=== PATIENT | male | born 1935 | race Caucasian/White ===

== ENCOUNTER 2017-03-06 09:32 | Day surgery (SDC) | payer MEDICARE, OTHER ==
[~2017-03-06 09:32] MED LIST: ACETAMINOPHEN 325 MG TABLET PO PRN; ACETYLCHOLINE CHLORIDE 20 DROP KIT IO PRN; BUPIVACAINE HCL/PF 30 ML VIAL IJ PRN; CYCLOPENTOLATE HCL 20 DROP BTL RIGHTEYE PRN; DEXTROSE 5%-0.5 NORMAL SALINE 1,000 ML IV PRN; EPINEPHrine 1 MG/ML AMPUL IO PRN; HYALURONATE SODIUM 0.4 ML DISP.SYRIN IO PRN; HYALURONATE SODIUM 0.85 ML DISP.SYRIN IO PRN; LIDOCAINE HCL/PF 200 MG/5 ML AMPUL TP PRN; LIDOCAINE HCL/PF 5 ML VIAL IO PRN; NORMAL SALINE 3 ML BOX IV PRN; TETRACAINE HCL 150 DROP BTL OP PRN
[2017-03-06] MEDS: PHENYLEPHRINE HCL 50 DROP BTL RIGHTEYE PRN ×3 (10:03→10:38)
[2017-03-06] MEDS: TROPICAMIDE 150 DROP BTL RIGHTEYE PRN ×3 (10:03→10:38)
[2017-03-06] MEDS ORDERED: DEXTROSE 5%-0.5 NORMAL SALINE 1,000 ML IV ONE (11:10)
[2017-03-06 13:52] VITALS: BP 141/93
== END 2017-03-06 09:33 | disposition home or self-care (01) ==
LOC: AMB 09:32
PROVIDERS: ATTEND Ophthalmology
PROC: 08RJ3JZ Replacement of Right Lens with Synthetic Substitute, Percutaneous Approach (ICD-10-PCS; principal; 2017-03-06 11:00)
DX: H26.8 Other specified cataract (principal); G30.9 Alzheimer's disease, unspecified; F02.80 Dementia in other diseases classified elsewhere, unspecified severity, without behavioral disturbance, psychotic disturbance, mood disturbance, and anxiety; Z87.891 Personal history of nicotine dependence; Z68.30 Body mass index [BMI] 30.0-30.9, adult

== ENCOUNTER 2019-05-02 11:24 | Observation (INO) ==
[2019-05-02] MEDS ORDERED: DILTIAZEM HCL 5 MG/ML VIAL IV ONE ×2 (11:38→22:35)
[2019-05-02 11:54] LABS: Hematocrit 47.6 % (42.0-52.0); Hemoglobin 15.8 gm/dL (13.5-18.0); Mean Cell Volume 93.7 fl (78-100); Mean Corpuscular Hemoglobin 31.1 pg (27-31); Mean Corpuscular Hgb Conc 33.2 g/dl (32-36); Mean Platelet Volume 9.5 fl (8-11.3); Neutrophil # 5.9 K/mm3 (1.3-6.0); Neutrophil % 68.3 % (42-75.0); Platelet Count 282 K/mm3 (150-450); Red Blood Count 5.08 M/mm3 (4.7-6.0); Red Cell Distribution Width 14.3 % (11.5-14.0); White Blood Count 8.6 K/mm3 (4.0-10.5)
[2019-05-02 12:05] LABS: Prothrombin Time (Patient) 9.6 Seconds (9.1-10.7)
[2019-05-02 12:07] LABS: INR 0.97 INR (0.92-1.08)
[2019-05-02 12:11] LABS: ALT 29 U/L (19-67); AST 18 U/L (0-48); Albumin * 3.5 gm/dl (3.4-5.0); Alkaline Phosphatase * 94 U/L (50-170); Anion Gap 14.5 mmol/L (6.8-13.8); Bilirubin, Total 0.6 mg/dL (0.0-1.1); Blood Urea Nitrogen 19 mg/dL (6-23); Calcium * 8.9 mg/dL (7.9-10.9); Chloride 101 mmol/L (97-106); Glucose * 131 mg/dL (70-110); Potassium 4.5 mmol/L (3.4-4.6); Sodium 138 mmol/L (132-142); Total Protein 7.2 gm/dL (6.2-8.2)
[2019-05-02 12:12] LABS: Troponin I Less than 0.017 ng/mL (0.00-0.10)
[2019-05-02] MEDS ORDERED: FUROSEMIDE 10 MG/ML VIAL IV ONE (14:17)
--- NOTE | 2019-05-02 14:42 | ERNOTE ---
Chest Pain/Cardiac HPI Date of Service: 05/02/19 Chief Complaint: Palpitations Time Seen by Provider: 05/02/19 11:30 Source: patient, EMS, [facility] [place] Exam Limitations: hard of hearing, dementia Immunizations: IMMUNIZATION HX Immunizations Up to Date Yes History of Influenza Vaccine Yes Hx Pneumococcal Vaccination Yes Allergies/Adverse Reactions: Allergies No Known Allergies Allergy (Verified 05/02/19 11:30) Home Medications: HOME MEDICATIONS Acetaminophen [Tylenol] 650 mg PO Q6H PRN 05/05/15 [Last Taken Unknown] loratadine 10 mg tablet 10 mg PO DAILY 02/14/18 [Last Taken Unknown] saliva substitute combo no.9 mouthwash 15 ml MUCOUS MEMBRANE DAILY PRN 03/27/18 [Last Taken Unknown] nystatin 100,000 unit/gram topical cream 1 applic TP DAILY PRN 06/08/18 [Last Taken Unknown] Narrative: patient present to ed per ambulance with acute onset of a-fib Timing: constant Severity/Quality: moderate, dull Location: back Chest Pain Radiation: no radiation Activities at Onset: none Modifying Factors - Improves: Present: nothing Modifying Factors - Worsens: Present: nothing Nitro Today/Relief: no nitro taken today Aspirin Treatment Today: no aspirin today Associated Symptoms: Present: denies symptoms Prior Chest Pain/Cardiac Workup: Reports: prior chest pain Review of Systems - Review of Systems Constitutional: Present: See HPI EYE: Present: no symptoms reported ENT: Present: no symptoms reported Respiratory: Present: See HPI, shortness of breath Cardiology: Present: See HPI, palpitations Gastrointestinal/Abdominal: Present: no symptoms reported Genitourinary: Present: no symptoms reported Musculoskeletal: Present: no symptoms reported Skin: Present: no symptoms reported Neurological: Present: no symptoms reported Endocrine: Present: no symptoms reported Hematologic/Lymphatic: Present: no symptoms reported Psych: Present: no symptoms reported All Other Systems: All systems neg except as marked Medical History (Updated 10/12/18 @ 16:39 by Kacey Reid DPM) Allergic rhinitis (Chronic) TIA (transient ischemic attack) (Chronic) Onset Date: Unknown left cerebral Pseudobulbar affect (Chronic) Onset Date: ~2016 Polyosteoarthritis, unspecified (Chronic) Onset Date: Unknown Osteoarthritis (Chronic) Onset Date: Unknown Macular degeneration (Chronic) Onset Date: Unknown Dementia (Chronic) Onset Date: Unknown Bipolar affective disorder (Chronic) Onset Date: ~2017 Alzheimer disease Onset Date: Unknown Atrioventricular block Onset Date: Unknown Bereavement reaction Onset Date: Unknown Difficulty walking Foot pain, bilateral Hearing loss Onset Date: Unknown 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 Onychomycosis Rage Onset Date: Unknown Toe pain, bilateral UTI (urinary tract infection) Surgical History: Surgical History (Updated 05/02/19 @ 12:38 by Anahy Rebollar, RN) Surgical history unknown Family History: Family History (Updated 02/14/18 @ 11:13 by Shanel Damian RN) Father Emphysema of lung Social History: (Last Reviewed 05/02/19 @ 11:30 by Anahy Rebollar, RN) Social History[place] [facility] [facility] Tobacco: Smoking Status: Former smoker Alcohol: alcohol intake: current Substance Use: substance use type: unknown Dietary Habits: caffeine: Yes Physical Exam - Physical Exam General Appearance: Present: mild distress, anxious Head Exam: Present: normal inspection, no evidence of injury Eye Exam: Normal inspection: bilateral, PERRL: bilateral, EOMI: bilateral Ears, Nose, Throat: Present: normal ENT inspection, normal pharynx Neck: Present: normal inspection, nontender Respiratory: Present: no respiratory distress, normal breath sounds, no accessory muscle use, chest nontender, lungs clear Cardiovascular/Chest: Present: irregularly irregular Gastrointestinal/Abdominal: Present: normal bowel sounds, nontender, nondistended, soft Back Exam: Present: normal inspection, normal range of motion, no CVA tenderness, no vertebral tenderness Extremity Exam: Present: normal inspection, non-tender, normal range of motion, no edema Neurological Exam: Present: disoriented to person, disoriented to time Skin Exam: Present: normal color, warm/dry Lymphatic Exam: Present: no adenopathy Progress - Date and Time Seen: Date and Time: 05/02/19 14:40 cardizem given iv, rate controlled at present - Results and Orders Patient's Lab Results:: I have reviewed the patient's lab results. - Vital Signs Patient's Vital Signs:: I have reviewed the patient's vital signs. Vital Signs: Vital Signs 05/02/19 11:27 05/02/19 11:30 05/02/19 11:41 Temperature 36.2 C Pulse Rate 152 H 149 H 153 H Respiratory Rate 33 H 21 H Blood Pressure 125/76 125/75 O2 Sat by Pulse Oximetry 05/02/19 11:44 05/02/19 11:51 05/02/19 12:01 Temperature Pulse Rate 100 110 H 71 Respiratory Rate 24 H 22 H 19 Blood Pressure 97/54 110/62 110/63 O2 Sat by Pulse Oximetry 99 99 99 05/02/19 12:06 05/02/19 12:11 05/02/19 12:32 Temperature Pulse Rate 69 88 81 Respiratory Rate 16 19 24 H Blood Pressure 107/60 114/77 107/68 O2 Sat by Pulse Oximetry 100 100 100 05/02/19 12:50 05/02/19 13:36 05/02/19 14:02 Temperature Pulse Rate 67 70 62 Respiratory Rate 21 H 20 21 H Blood Pressure 113/57 101/64 113/56 O2 Sat by Pulse Oximetry 99 100 100 - EKG EKG #1 EKG: atrial fibrillation - X-Ray X-Ray #1 X-Ray: chest Interpretation: Discd w/ radiologist - pulmonary vascular congestion - Progress/Reassessment Chief Complaint: Palpitations Progress:: Improved - Transfer of Care Expected Disposition: Admit Plan - Plan Plan: to admit to observation Departure Clinical Impression: Atrial fibrillation with rapid ventricular response - Departure Disposition: Short Term Hospital Inpatient Condition: Fair
--- NOTE | 2019-05-02 16:03 | HP ---
Chief Complaint - Chief Complaint Date of Service: 05/02/19 Time of Service: 16:03 Chief Complaint: Chest Pain History of Present Illness: 84-year-old male a resident of [facility] presents to the ER with complaints of chest pain. Past medical history transient ischemic attack, dementia, bipolar affective disorder, Alzheimer's disease. Patient is a resident of [facility]. Family care provider is Divya Streeter. Patient was complaining of chest pain. Pain was rated 2-3 out of 10. Chest pain resolved upon arrival to the ER. On arrival vital signs were stable with exception of tachycardia. Patient placed on continuous telemetry and cardiac work-up completed. EKG was significant for A. fib RVR and BNP was elevated to 1618. Patient initially cardioverted without any medical intervention. However shortly went back into A. fib RVR. This resolved with 25 mg Cardizem IV push. No past medical history of congestive heart failure, hypertension or atrial fib. Patient admitted in observations for further management. On arrival to the floor patient was evaluated. Vital signs stable. Patient is seated in chair at bedside. Physical examination is only significant for minimal pitting edema of the lower extremity, firm abdomen most likely secondary to ascites and bilateral lower lobe crackles. Otherwise patient has no complaints at the moment. Medical History (Updated 05/02/19 @ 16:23 by Quintin Horton MD) Allergic rhinitis (Chronic) TIA (transient ischemic attack) (Chronic) Onset Date: Unknown left cerebral Pseudobulbar affect (Chronic) Onset Date: ~2016 Polyosteoarthritis, unspecified (Chronic) Onset Date: Unknown Osteoarthritis (Chronic) Onset Date: Unknown Macular degeneration (Chronic) Onset Date: Unknown Dementia (Chronic) Onset Date: Unknown Bipolar affective disorder (Chronic) Onset Date: ~2017 Alzheimer disease Onset Date: Unknown Atrioventricular block Onset Date: Unknown Bereavement reaction Onset Date: Unknown Difficulty walking Foot pain, bilateral Hearing loss Onset Date: Unknown 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 Onychomycosis Rage Onset Date: Unknown Toe pain, bilateral UTI (urinary tract infection) Surgical History: Surgical History (Updated 05/02/19 @ 12:38 by Anahy Rebollar RN) Surgical history unknown Family History: Family History (Updated 02/14/18 @ 11:13 by Shanel Damian RN) Father Emphysema of lung Social History: (Last Reviewed 05/02/19 @ 11:30 by Anahy Rebollar RN) Social History: skilled nursing: Yes skilled nursing comment: [facility] Tobacco: Smoking Status: Former smoker Alcohol: alcohol intake: current Substance Use: substance use type: unknown Dietary Habits: caffeine: Yes Review Of Systems (GEN) - Review of Systems Generalized/Overall Review: Present: Weakness Respiratory: Absent: Shortness of Breath Cardiac: Present: Chest Pain Abdominal: Absent: Nausea, Vomiting, Abdominal Pain, Constipation Musculoskeletal: Present: Joint Swelling. Absent: Joint Pain Neurological: Present: Weakness Skin: Present: Dryness Immunizations: IMMUNIZATION HX Immunizations Up to Date Yes History of Influenza Vaccine Yes Hx Pneumococcal Vaccination Yes Allergies/Adverse Reactions: Allergies Allergy/AdvReac Type Severity Reaction Status Date / Time No Known Allergies Allergy Verified 05/02/19 11:30 Home Medications: HOME MEDICATIONS Acetaminophen [Tylenol] 650 mg PO Q6H PRN 05/05/15 [Last Taken Unknown] loratadine 10 mg tablet 10 mg PO DAILY 02/14/18 [Last Taken Unknown] saliva substitute combo no.9 mouthwash 15 ml MUCOUS MEMBRANE DAILY PRN 03/27/18 [Last Taken Unknown] nystatin 100,000 unit/gram topical cream 1 applic TP DAILY PRN 06/08/18 [Last Taken Unknown] Exam - Exam Vital Signs: Vital Signs - Last Taken Temp 35.8 C L 05/02/19 15:45 Pulse 67 05/02/19 15:45 Resp 18 05/02/19 15:45 BP 143/69 05/02/19 15:45 Pulse Ox 95 05/02/19 15:45 Constitutional: Present: Alert, Oriented x3, Cooperative, Well developed, Well nourished, No distress ENT Exam: Absent: hearing grossly normal - Patient is hard of hearing Neck: Present: non-tender, full range of motion, supple, normal inspection Respiratory: Present: no respiratory distress, crackles - Bilateral lower lobe Cardiovascular/Chest: Present: normal peripheral pulses, regular rate, rhythm Abdomen: Present: Normal bowel sounds, firm - Most likely secondary to ascites secondary from congestive heart failure Extremity: Present: normal range of motion, non-tender, pedal edema - 1+ pitting edema Skin Exam: Present: normal color, warm/dry Neurologic: Present: oriented x 3 Appearance: Present: appropriate appearance Eye contact: Present: cooperative Diagnostic Studies: Abnormal Lab Results 05/02/19 05/02/1905/02/19 Range/Units 11:50 11:50 11:50 MCH 31.1 H (27-31) pg RDW 14.3 H (11.5-14.0) % Lymphocytes % 19.5 L (20-51) % Monocytes % 9.3 H (0.0-9) % Anion Gap 14.5 H (6.8-13.8) mmol/L Est GFR (Non-Af Amer) 58 L (60-130) mL/min Random Glucose 131 H (70-110) mg/dL B-Natriuretic Peptide 1618 H (5-650) pg/mL Laboratory Results WBC 8.6 K/mm3 (4.0-10.5) 05/02/19 11:50 RBC 5.08 M/mm3 (4.7-6.0) 05/02/19 11:50 Hgb 15.8 gm/dL (13.5-18.0) 05/02/19 11:50 Hct 47.6 % (42.0-52.0) 05/02/19 11:50 MCV 93.7 fl (78-100) 05/02/19 11:50 MCH 31.1 pg (27-31) H 05/02/19 11:50 MCHC 33.2 g/dl (32-36) 05/02/19 11:50 RDW 14.3 % (11.5-14.0) H 05/02/19 11:50 Plt Count 282 K/mm3 (150-450) 05/02/19 11:50 MPV 9.5 fl (8-11.3) 05/02/19 11:50 Immature Gran % (Auto) 0.40 % (0.001-0.429) 05/02/19 11:50 Immature Gran # (Auto) 0.03 K/mm3 (0.000-0.0310) 05/02/19 11:50 68.3 % (42-75.0) 05/02/19 11:50 19.5 % (20-51) L 05/02/19 11:50 9.3 % (0.0-9) H 05/02/19 11:50 1.9 % (0.0-3.0) 05/02/19 11:50 0.6 % (0.0-1.0) 05/02/19 11:50 Nucleated RBC % 0.0 k/mm3 (0-1) 05/02/19 11:50 5.9 K/mm3 (1.3-6.0) 05/02/19 11:50 1.67 k/mm3 (1.5-3.5) 05/02/19 11:50 0.8 k/mm3 (0.0-1.0) 05/02/19 11:50 0.2 k/mm3 (0.0-0.7) 05/02/19 11:50 Absolute Basophils 0.1 k/mm3 (0.0-0.1) 05/02/19 11:50 PT 9.6 Seconds (9.1-10.7) 05/02/19 11:50 INR (Anticoag Therapy) 0.97 INR (0.92-1.08) 05/02/19 11:50 PTT (Eric) 30.0 Seconds (24-32) 05/02/19 11:50 Sodium 138 mmol/L (132-142) 05/02/19 11:50 138 mmol/L (130-142) 05/02/19 11:50 Potassium 4.5 mmol/L (3.4-4.6) 05/02/19 11:50 Chloride 101 mmol/L (97-106) 05/02/19 11:50 Carbon Dioxide 27.0 mmol/L (24-32.6) 05/02/19 11:50 14.5 mmol/L (6.8-13.8) H 05/02/19 11:50 BUN 19 mg/dL (6-23) 05/02/19 11:50 1.27 mg/dL (0.4-1.4) 05/02/19 11:50 Est GFR (Non-Af Amer) 58 mL/min (60-130) L 05/02/19 11:50 15.0 (9.0-21.6) 05/02/19 11:50 131 mg/dL (70-110) H 05/02/19 11:50 Calcium 8.9 mg/dL (7.9-10.9) 05/02/19 11:50 Calcium Adj for Albumin 9.0 mg/dL (8.4-10.2) 05/02/19 11:50 0.6 mg/dL (0.0-1.1) 05/02/19 11:50 AST 18 U/L (0-48) 05/02/19 11:50 ALT 29 U/L (19-67) 05/02/19 11:50 94 U/L (50-170) 05/02/19 11:50 Less than 0.017 ng/mL (0.00-0.10) 05/02/19 11:50 B-Natriuretic Peptide 1618 pg/mL (5-650) H 05/02/19 11:50 7.2 gm/dL (6.2-8.2) 05/02/19 11:50 3.5 gm/dl (3.4-5.0) 05/02/19 11:50 Assessment/Plan - Narrative Narrative: 1. New onset A. fib with RVR -Cardioverted with Cardizem 25 mg IV -Continues to -We will order Cardizem 5 mg as needed -Currently in sinus rhythm with patient resumed to be in A. fib RVR will administer Cardizem push of 5 mg if no improvement will start Cardizem drip. -We will consider diagnosis of paroxysmal A. fib and discharge patient on the beta-humberto and to follow-up with primary care provider and steam conditioning operator for further evaluation. 2. New onset congestive heart failure most likely secondary to A. fib. -BNP obtained in ER 1608 -Received Lasix 60 mg IV -We will continue with Lasix 40 mg IV daily -Daily checks x-ray in the morning -Strict intake and output -Fluid restriction of 1500 mL -Daily weight 3. Hyperglycemia with no diagnosis of diabetes mellitus -Hyperglycemia most likely due to labs were obtained and they were nonfasting -We will obtain A1c to rule out diabetes mellitus 4 chronic condition of dementia and seasonal allergies -We will resume home medications Fluids electrolytes and nutrition: Heart healthy diet DVT prophylaxis: NovoLog 40 mg subcutaneous Activity: Ambulate with assistance, fall precautions due to age and weakness CODE STATUS: DNR/DNI Disposition: Anticipate discharge within 24 to 48 hours to [facility]. - Assessment/Plan (1) New onset atrial fibrillation Problem: Acute (2) New onset of congestive heart failure Problem: Acute (3) Hyperglycemia Problem: Acute (4) Alzheimer disease Problem: Chronic Qualifiers: Alzheimer's disease onset: unspecified onset Dementia behavioral disturbance: without behavioral disturbance Qualified Code(s): G30.9 - Alzheimer's disease, unspecified; F02.80 - Dementia in other diseases classified elsewhere without behavioral disturbance (5) Hearing loss Problem: Chronic Qualifiers: Hearing loss type: unspecified Laterality: bilateral Qualified Code(s): H91.93 - Unspecified hearing loss, bilateral (6) Allergic rhinitis Problem: Chronic Qualifiers: Allergic rhinitis trigger: unspecified Allergic rhinitis seasonality: unspecified Qualified Code(s): J30.9 - Allergic rhinitis, unspecified (7) Dementia Problem: Chronic Qualifiers: Dementia type: unspecified type Dementia behavioral disturbance: without behavioral disturbance Qualified Code(s): F03.90 - Unspecified dementia without behavioral disturbance
[2019-05-02] MEDS ORDERED: ACETAMINOPHEN 500 MG TABLET PO PRN (16:26)
[2019-05-02] MEDS ORDERED: ENOXAPARIN SODIUM 40 MG/0.4 ML SYRG SC SCH (16:30)
[2019-05-02] MEDS ORDERED: NYSTATIN 30 APPL TUBE TP PRN (16:38)
[2019-05-02] MEDS ORDERED: Lytes/Yerba Santa 240 APPL BTL MM PRN (16:38)
[2019-05-02] MEDS ORDERED: FLU VACC QS2019-20(6MOS UP)/PF 60 MCG/0.5 ML SYRINGE IM ONE (17:00)
[2019-05-02] MEDS: DILTIAZEM HCL 30 MG TABLET PO SCH (21:08)
[2019-05-03 05:55] LABS: Hemoglobin 14.8 gm/dL (13.5-18.0); Mean Cell Volume 93.2 fl (78-100); Mean Corpuscular Hemoglobin 30.6 pg (27-31); Mean Corpuscular Hgb Conc 32.9 g/dl (32-36); Mean Platelet Volume 9.9 fl (8-11.3); Neutrophil # 5.6 K/mm3 (1.3-6.0); Neutrophil % 68.4 % (42-75.0); Platelet Count 263 K/mm3 (150-450); Red Blood Count 4.83 M/mm3 (4.7-6.0); Red Cell Distribution Width 14.4 % (11.5-14.0); White Blood Count 8.2 K/mm3 (4.0-10.5)
[2019-05-03 06:12] LABS: Albumin * 3.5 gm/dl (3.4-5.0); Anion Gap 12.4 mmol/L (6.8-13.8); BUN/Creatinine Ratio 18.8 (9.0-21.6); Bilirubin, Total 0.8 mg/dL (0.0-1.1); Calcium * 8.9 mg/dL (7.9-10.9); Carbon Dioxide 28.9 mmol/L (24-32.6); Potassium 4.3 mmol/L (3.4-4.6); Total Protein 6.9 gm/dL (6.2-8.2)
--- NOTE | 2019-05-03 08:35 | DS ---
(1) New onset atrial fibrillation Problem: Acute (2) New onset of congestive heart failure Problem: Acute (3) Hyperglycemia Problem: Acute (4) Alzheimer disease Problem: Chronic Qualifiers: Alzheimer's disease onset: unspecified onset Dementia behavioral disturbance: without behavioral disturbance Qualified Code(s): G30.9 - Alzheimer's disease, unspecified; F02.80 - Dementia in other diseases classified elsewhere without behavioral disturbance (5) Hearing loss Problem: Chronic Qualifiers: Hearing loss type: unspecified Laterality: bilateral Qualified Code(s): H91.93 - Unspecified hearing loss, bilateral (6) Allergic rhinitis Problem: Chronic Qualifiers: Allergic rhinitis trigger: unspecified Allergic rhinitis seasonality: unspecified Qualified Code(s): J30.9 - Allergic rhinitis, unspecified (7) Dementia Problem: Chronic Qualifiers: Dementia type: unspecified type Dementia behavioral disturbance: without behavioral disturbance Qualified Code(s): F03.90 - Unspecified dementia without behavioral disturbance Date of Discharge:: 05/03/19 Description of Stay: 84-year-old male a resident of [facility] presents to the ER with complaints of chest pain. Past medical history transient ischemic attack, dementia, bipolar affective disorder, Alzheimer's disease. Patient is a resident of [facility]. Family care provider is Divya Streeter. Patient was complaining of chest pain. Pain was rated 2-3 out of 10. Chest pain resolved upon arrival to the ER. On arrival vital signs were stable with exception of tachycardia. Patient placed on continuous telemetry and cardiac work-up completed. EKG was significant for A. fib RVR and BNP was elevated to 1618. Patient initially cardioverted without any medical intervention. However shortly went back into A. fib RVR. This resolved with 25 mg Cardizem IV push. No past medical history of congestive heart failure, hypertension or atrial fib. Patient admitted in observations for further management. On arrival to the floor patient was evaluated. Vital signs stable. Patient is seated in chair at bedside. Physical examination is only significant for minimal pitting edema of the lower extremity, firm abdomen most likely secondary to ascites and bilateral lower lobe crackles. Otherwise patient has no co mplaints at the moment. Overnight patient did well. Patient was started on Cardizem 30 mg p.o. twice daily. Overnight patient did revert back to A. fib RVR ordered 10 mg of Cardizem IV push which cardioverted patient back into normal sinus rhythm. Shunt was diuresed appropriately with a total of Lasix 120 mg IV. Shunt is stable and will be discharged back to [facility] long term. Discharge patient with Cardizem 30 mg p.o. twice daily and to continue with Lasix 40 mg daily and to follow-up with primary care doctor for further management and referral to cardiology for higher level of care. Procedures Performed: none Results and Findings: Lab Pending Results 05/02/19 11:50: WBC 8.6, RBC 5.08, Hgb 15.8, Hct 47.6, MCV 93.7, MCH 31.1 H, MCHC 33.2, RDW 14.3 H, Plt Count 282, MPV 9.5, Immature Gran % (Auto) 0.40, Immature Gran # (Auto) 0.03, Neutrophils % 68.3, Lymphocytes % 19.5 L, Monocytes % 9.3 H, Eosinophils % 1.9, Basophils % 0.6, Nucleated RBC % 0.0, Neutrophils # 5.9, Lymphocytes # 1.67, Monocytes # 0.8, Eosinophils # 0.2, Absolute Basophils 0.1 05/02/19 11:50: PT 9.6, INR (Anticoag Therapy) 0.97, PTT (Eric) 30.0 05/02/19 11:50: Sodium 138, Plasma Sodium 138, Potassium 4.5, Chloride 101, Carbon Dioxide 27.0, Anion Gap 14.5 H, BUN 19, Creatinine 1.27, Est GFR (Non-Af Amer) 58 L, BUN/Creatinine Ratio 15.0, Random Glucose 131 H, Calcium 8.9, Calcium Adj for Albumin 9.0, Total Bilirubin 0.6, AST 18, ALT 29, Alkaline Phosphatase 94, Troponin I Less than 0.017, Total Protein 7.2, Albumin 3.5 05/02/19 11:50: B-Natriuretic Peptide 1618 H 05/03/19 05:51: WBC 8.2, RBC 4.83, Hgb 14.8, Hct 45.0, MCV 93.2, MCH 30.6, MCHC 32.9, RDW 14.4 H, Plt Count 263, MPV 9.9, Immature Gran % (Auto) 0.40, Immature Gran # (Auto) 0.03, Neutrophils % 68.4, Lymphocytes % 19.3 L, Monocytes % 9.8 H, Eosinophils % 1.6, Basophils % 0.5, Nucleated RBC % 0.0, Neutrophils # 5.6, Lymphocytes # 1.58, Monocytes # 0.8, Eosinophils # 0.1, Absolute Basophils 0.0 05/03/19 05:51: Sodium 140, Plasma Sodium 140, Potassium 4.3, Chloride 103, Carbon Dioxide 28.9, Anion Gap 12.4, BUN 24 H, Creatinine 1.28, Est GFR (Non-Af Amer) 57 L, BUN/Creatinine Ratio 18.8, Random Glucose 102, Calcium 8.9, Calcium Adj for Albumin 9.0, Total Bilirubin 0.8, AST 18, ALT 23, Alkaline Phosphatase 81, Total Protein 6.9, Albumin 3.5 Discharge Location: [facility] Disposition: Intermediate Care Facility ICF Condition: Fair Level of Care: ICF Discharge Activity: Activity as tolerated Discharge Diet: Low salt, Low fat/chol Referrals: Divya Streeter FNP [Primary Care Provider] - Prescriptions (Any new or edited meds): Diltiazem HCl [Cardizem] 30 mg PO BID #60 tablet Furosemide [Lasix] 40 mg PO 3XW #30 tablet Complete Home Medications List: Complete Home Medication List: Acetaminophen [Tylenol] 650 mg PO Q6H PRN 05/05/15 loratadine 10 mg tablet 10 mg PO DAILY 02/14/18 saliva substitute combo no.9 mouthwash 15 ml MUCOUS MEMBRANE DAILY PRN 03/27/18 nystatin 100,000 unit/gram topical cream 1 applic TP DAILY PRN 06/08/18 Diltiazem HCl [Cardizem] 30 mg PO BID #60 tablet 05/03/19 Furosemide [Lasix] 40 mg PO 3XW #30 tablet 05/03/19
[2019-05-03] MEDS ORDERED: LORATADINE 10 MG TABLET PO SCH (09:00)
[2019-05-03] MEDS ORDERED: FUROSEMIDE 10 MG/ML VIAL IV SCH (09:00)
[2019-05-03] MEDS ORDERED: FLU VACC QS2019-20(6MOS UP)/PF 60 MCG/0.5 ML SYRINGE IM ONE (09:00)
[2019-05-03] MEDS: DILTIAZEM HCL 30 MG TABLET PO SCH (09:24)
[2019-05-03 11:14] VITALS: BP 135/82
== END 2019-05-03 11:22 ==
LOC: ER 11:24 → MS 11:24
PROVIDERS: ADMIT Family Medicine; ATTEND Family Medicine
DX: Z23 Encounter for immunization; F02.80 Dementia in other diseases classified elsewhere, unspecified severity, without behavioral disturbance, psychotic disturbance, mood disturbance, and anxiety; J30.9 Allergic rhinitis, unspecified; R73.9 Hyperglycemia, unspecified; G30.9 Alzheimer's disease, unspecified; F03.90 Unspecified dementia, unspecified severity, without behavioral disturbance, psychotic disturbance, mood disturbance, and anxiety; I50.9 Heart failure, unspecified; I48.91 Unspecified atrial fibrillation; H91.93 Unspecified hearing loss, bilateral
CPT/HCPCS: 36415; 71010; 71045; 80053; 83519; 83880; 84484; 85025; 85610; 85730; 87081; 90686; 93005; 96372; 96374; 96375; 99285; G0008; G0378

== ENCOUNTER 2019-06-07 17:07 | Observation (INO) ==
[2019-06-07 17:34] LABS: Hematocrit 46.2 % (42.0-52.0); Mean Cell Volume 94.7 fl (78-100); Mean Corpuscular Hemoglobin 30.7 pg (27-31); Mean Corpuscular Hgb Conc 32.5 g/dl (32-36); Mean Platelet Volume 9.7 fl (8-11.3); Neutrophil # 5.4 K/mm3 (1.3-6.0); Neutrophil % 62.9 % (42-75.0); Platelet Count 267 K/mm3 (150-450); Red Blood Count 4.88 M/mm3 (4.7-6.0); Red Cell Distribution Width 13.7 % (11.5-14.0); White Blood Count 8.6 K/mm3 (4.0-10.5)
[2019-06-07 17:45] LABS: INR 0.99 INR (0.92-1.08); Prothrombin Time (Patient) 9.8 Seconds (9.1-10.7)
[2019-06-07 17:46] LABS: Partial Thrombolplastin Time 30.1 Seconds (24-32)
[2019-06-07 17:52] LABS: Albumin * 3.6 gm/dl (3.4-5.0); Anion Gap 11.3 mmol/L (6.8-13.8); BUN/Creatinine Ratio 17.4 (9.0-21.6); Bilirubin, Total 0.4 mg/dL (0.0-1.1); Ca. Corrected For Albumin 8.3 mg/dL (8.4-10.2); Calcium * 8.3 mg/dL (7.9-10.9); Carbon Dioxide 28.8 mmol/L (24-32.6); Potassium 4.1 mmol/L (3.4-4.6); Total Protein 7.2 gm/dL (6.2-8.2); Troponin I 0.046 ng/mL (0.00-0.10)
--- NOTE | 2019-06-07 19:15 | ERNOTE ---
<Yaakov Pisano - Last Filed: 06/07/19 19:52> Chest Pain/Cardiac HPI Date of Service: 06/07/19 Chief Complaint: Chest Pain Time Seen by Provider: 06/07/19 17:55 Source: patient Exam Limitations: hard of hearing Immunizations: IMMUNIZATION HX Immunizations Up to Date Yes History of Influenza Vaccine More Information Required Hx Pneumococcal Vaccination Yes Allergies/Adverse Reactions: Allergies No Known Allergies Allergy (Verified 06/07/19 17:19) Home Medications: HOME MEDICATIONS loratadine 10 mg tablet 10 mg PO DAILY 02/14/18 [Last Taken Unknown] Diltiazem HCl [Cardizem] 30 mg PO BID #60 tab 05/03/19 [Last Taken 06/07/19 16:30 30 mg] Docusate Sodium [Colace] 100 mg PO BID 06/07/19 [Last Taken Unknown] Escitalopram Oxalate [Lexapro] 5 mg PO DAILY 06/07/19 [Last Taken Unknown] Finasteride [Proscar] 5 mg PO DAILY 06/07/19 [Last Taken Unknown] Fluticasone Propionate [Flonase] 2 spray NS DAILY 06/07/19 [Last Taken Unknown] Gabapentin [Neurontin] 300 mg PO BID 06/07/19 [Last Taken Unknown] Hydrochlorothiazide [Hydrodiuril] 25 mg PO DAILY 06/07/19 [Last Taken Unknown] Polyethylene Glycol 3350 [Gavilax] 17 gm PO DAILY 06/07/19 [Last Taken Unknown] Ranitidine HCl [Zantac] 150 mg PO DAILY 06/07/19 [Last Taken Unknown] Tamsulosin HCl 0.4 mg PO DAILY 06/07/19 [Last Taken Unknown] Narrative: Patient is incredibly hard of hearing. This makes history very hard to obtain. HE was sent in for rapid hear rate. He has history of a fib RVR in the past buy report. Tonight his heart was racing and apparently he had chest pain. When I see him he has no chest pain and when I try to get him to discuss his pain he is unable. He denies pain now. No SOB. He was given PO cardizem here and shortly after arriving he concerted to NSR. He has no other complaints. Timing: gone now Severity/Quality: mild Location: other - unknown Activities at Onset: none Modifying Factors - Improves: Present: other - cardizem brought his HR back to normal Modifying Factors - Worsens: Present: nothing Prior Treatment: Denies: recently seen Review of Systems - Narrative Narrative: unable to obtain due to severe hearing deficit Medical History (Last Reviewed 06/07/19 @ 19:12 by Yaakov Pisano MD) Allergic rhinitis (Chronic) TIA (transient ischemic attack) (Chronic) Onset Date: Unknown left cerebral Pseudobulbar affect (Chronic) Onset Date: ~2017 Polyosteoarthritis, unspecified (Chronic) Onset Date: Unknown Osteoarthritis (Chronic) Onset Date: Unknown Macular degeneration (Chronic) Onset Date: Unknown Dementia (Chronic) Onset Date: Unknown Bipolar affective disorder (Chronic) Onset Date: ~2017 Atrial fibrillation Alzheimer disease Onset Date: Unknown Atrioventricular block Onset Date: Unknown Bereavement reaction Onset Date: Unknown Difficulty walking Foot pain, bilateral Hearing loss Onset Date: Unknown 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 Onychomycosis Rage Onset Date: Unknown Toe pain, bilateral UTI (urinary tract infection) Surgical History: Surgical History (Last Reviewed 06/07/19 @ 19:12 by Yaakov Pisano MD) Surgical history unknown Family History: Family History (Last Reviewed 06/07/19 @ 19:12 by Yaakov Pisano MD) Father Emphysema of lung Social History: (Last Reviewed 06/07/19 @ 19:12 by Yaakov Pisano MD) Social History: chcf: Yes chcf comment: [facility] Tobacco: Smoking Status: Former smoker Alcohol: alcohol intake: current Substance Use: substance use type: unknown Dietary Habits: caffeine: Yes Physical Exam - Physical Exam General Appearance: Present: alert, no apparent distress Head Exam: Present: normal inspection, no evidence of injury Eye Exam: Normal inspection: bilateral, PERRL: bilateral Ears, Nose, Throat: Present: normal ENT inspection Neck: Present: normal inspection Respiratory: Present: no respiratory distress, normal breath sounds, no accessor y muscle use, lungs clear Cardiovascular/Chest: Present: regular rate, rhythm, normal peripheral pulses Gastrointestinal/Abdominal: Present: normal bowel sounds, nontender, soft Back Exam: Absent: CVA tenderness (R), CVA tenderness (L) Extremity Exam: Present: other - no calf tenderness. No DVT findings. Neurological Exam: Present: other - no acute unilateral focal motor or sensory deficits Skin Exam: Present: normal color, warm/dry Progress - Results and Orders Patient's Lab Results:: I have reviewed the patient's lab results. - Vital Signs Patient's Vital Signs:: I have reviewed the patient's vital signs. Vital Signs: Vital Signs 06/07/19 17:09 06/07/19 17:18 06/07/19 17:48 Temperature 36.5 C Pulse Rate 148 H 140 H 149 H Respiratory Rate 24 H 24 H 20 Blood Pressure 111/79 111/79 111/57 O2 Sat by Pulse Oximetry 93 95 93 06/07/19 18:43 Temperature 36.4 C Pulse Rate 77 Respiratory Rate 14 Blood Pressure 111/65 O2 Sat by Pulse Oximetry 97 - EKG EKG #1 EKG read: Interp. by me EKG Comments: A flutter rate 147. Non-specific ST/T wave changes, no STEMI EKG #2 EKG: NSR EKG read: Interp. by me EKG Comments: NSR rate 76. RBBB. Non-specific no STEMI - X-Ray X-Ray #1 X-Ray: chest Interpretation: Interp. by dc X-ray Comments: I reviewed official radiology report - Progress/Reassessment Chief Complaint: Chest Pain Progress Note-Subjective: 06/07/19 19:5 - Transfer of Care Physician Sign Out: Yaakov Pisano Receiving Physician: Delia Schofield Pending Results: Labs Departure Clinical Impression: Atrial flutter with rapid ventricular response, Elevated troponin - Departure Disposition: Still a patient Condition: Good Referrals: Divya Streeter FNP [Primary Care Provider] - <Delia Schofield - Last Filed: 06/07/19 21:30> Chest Pain/Cardiac HPI Immunizations: IMMUNIZATION HX Immunizations Up to Date Yes History of Influenza Vaccine More Information Required Hx Pneumococcal Vaccination Yes Medical History (Last Reviewed 06/07/19 @ 19:12 by Yaakov Pisano MD) Allergic rhinitis (Chronic) TIA (transient ischemic attack) (Chronic) Onset Date: Unknown left cerebral Pseudobulbar affect (Chronic) Onset Date: ~2017 Polyosteoarthritis, unspecified (Chronic) Onset Date: Unknown Osteoarthritis (Chronic) Onset Date: Unknown Macular degeneration (Chronic) Onset Date: Unknown Dementia (Chronic) Onset Date: Unknown Bipolar affective disorder (Chronic) Onset Date: ~2016 Atrial fibrillation Alzheimer disease Onset Date: Unknown Atrioventricular block Onset Date: Unknown Bereavement reaction Onset Date: Unknown Difficulty walking Foot pain, bilateral Hearing loss Onset Date: Unknown 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 Onychomycosis Rage Onset Date: Unknown Toe pain, bilateral UTI (urinary tract infection) Surgical History: Surgical History (Last Reviewed 06/07/19 @ 19:12 by Yaakov Pisano MD) Surgical history unknown Family History: Family History (Last Reviewed 06/07/19 @ 19:12 by Yaakov Pisano MD) Father Emphysema of lung Social History: (Last Reviewed 06/07/19 @ 19:12 by Yaakov Pisano MD) Social History: chcf: Yes chcf comment: [facility] Tobacco: Smoking Status: Former smoker Alcohol: alcohol intake: current Substance Use: substance use type: unknown Dietary Habits: caffeine: Yes Progress - Vital Signs Vital Signs: Vital Signs 06/07/19 17:09 06/07/19 17:18 06/07/19 17:48 Temperature 36.5 C Pulse Rate 148 H 140 H 149 H Respiratory Rate 24 H 24 H 20 Blood Pressure 111/79 111/79 111/57 O2 Sat by Pulse Oximetry 93 95 93 06/07/19 18:43 06/07/19 19:00 06/07/19 19:30 Temperature 36.4 C Pulse Rate 77 80 74 Respiratory Rate 14 14 18 Blood Pressure 111/65 138/77 119/69 O2 Sat by Pulse Oximetry 97 94 94 06/07/19 20:00 06/07/19 20:30 Temperature Pulse Rate 77 71 Respiratory Rate 15 20 Blood Pressure 111/72 122/67 O2 Sat by Pulse Oximetry 95 94 - Transfer of Care Expected Disposition: Admit Additional Notes: 9:17 - Patient second troponin is higher than his first troponin. Spoke to Dr Looney, who accepted admission Plan - Plan Plan: Admit to Dr Looney for atrial fibrillation with RVR, and elevated and rising troponin
--- NOTE | 2019-06-08 09:29 | HPDIS ---
Chief Complaint - Chief Complaint Date of Service: 06/08/19 Time of Service: 09:01 Chief Complaint: Chest Pain and rapid heart rate History of Present Illness: Moustapha is an 84 yo male from [facility] [place] with known history of paroxysmal atrial fibrillation that developed chest pain and fast heart rate yesterday. He was sent to the ER, prior to arrival he was reportedly given diltiazem and by the time he arrived in the ER he had converted to normal sinus rhythm and his heart rate had returned to normal. In the ER his chest pain had resolved as well. Troponin was in normal range. Chest xray showed opacity in bilateral base which could be atelectasis vs pneumonia. In the ER he had no symptoms or concerns, but was very hard of hearing. At the time of my evaluation he reports feeling fine. He denies chest pain or shortness of breath. Medical History (Last Reviewed 06/07/19 @ 23:33 by Nicole Francis RN) Allergic rhinitis (Chronic) TIA (transient ischemic attack) (Chronic) Onset Date: Unknown left cerebral Pseudobulbar affect (Chronic) Onset Date: ~2017 Polyosteoarthritis, unspecified (Chronic) Onset Date: Unknown Osteoarthritis (Chronic) Onset Date: Unknown Macular degeneration (Chronic) Onset Date: Unknown Dementia (Chronic) Onset Date: Unknown Bipolar affective disorder (Chronic) Onset Date: ~2017 Atrial fibrillation Deviated septum Diabetes mellitus without complication Hypertension Alzheimer disease Onset Date: Unknown Atrioventricular block Onset Date: Unknown Bereavement reaction Onset Date: Unknown Difficulty walking Foot pain, bilateral Hearing loss Onset Date: Unknown 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 Onychomycosis Rage Onset Date: Unknown Toe pain, bilateral UTI (urinary tract infection) Surgical History: Surgical History (Last Reviewed 06/07/19 @ 23:33 by Nicole Francis RN) Surgical history unknown Family History: Family History (Last Reviewed 06/07/19 @ 23:33 by Nicole Francis RN) Father Emphysema of lung Social History: (Last Reviewed 06/07/19 @ 23:33 by Nicole Francis RN) Social History: intermediate: Yes intermediate comment: [facility] [place] Tobacco: Smoking Status: Former smoker Alcohol: alcohol intake: current Substance Use: substance use type: unknown Dietary Habits: caffeine: Yes Review Of Systems (GEN) - Review of Systems Generalized/Overall Review: Present: No Symptoms Reported EENTM: Present: No Symptoms Reported Respiratory: Present: No Symptoms Reported Cardiac: Present: No Symptoms Reported Abdominal: Present: No Symptoms Reported Genitourinary: Present: No Symptoms Reported Musculoskeletal: Present: No Symptoms Reported Neurological: Present: No Symptoms Reported Endocrine: Present: No Symptoms Reported Immunizations: IMMUNIZATION HX Immunizations Up to Date Yes History of Influenza Vaccine More Information Required Hx Pneumococcal Vaccination Yes Allergies/Adverse Reactions: Allergies Allergy/AdvReac Type Severity Reaction Status Date / Time No Known Allergies Allergy Verified 06/07/19 17:19 Home Medications: HOME MEDICATIONS loratadine 10 mg tablet 10 mg PO DAILY 02/14/18 [Last Taken 06/07/19 07:00] Diltiazem HCl [Cardizem] 30 mg PO BID #60 tab 05/03/19 [Last Taken 06/07/19 16:30 30 mg] Acetaminophen 650 mg PO Q4H PRN 06/07/19 [Last Taken Unknown] Benzonatate 100 mg PO TID PRN 06/07/19 [Last Taken Unknown] Bisacodyl 10 mg RC DAILY PRN 06/07/19 [Last Taken Unknown] Docusate Sodium [Colace] 100 mg PO BID 06/07/19 [Last Taken Unknown] Escitalopram Oxalate [Lexapro] 5 mg PO DAILY 06/07/19 [Last Taken 06/07/19 07:00] Finasteride [Proscar] 5 mg PO DAILY 06/07/19 [Last Taken 06/07/19 07:00] Fluticasone Propionate [Flonase] 2 spray NS DAILY 06/07/19 [Last Taken 06/07/19 07:00] Gabapentin [Neurontin] 300 mg PO BID 06/07/19 [Last Taken Unknown] Hydrochlorothiazide [Hydrodiuril] 25 mg PO DAILY 06/07/19 [Last Taken 06/07/19 07:00] Polyethylene Glycol 3350 [Gavilax] 17 gm PO DAILY 06/07/19 [Last Taken Unknown] Ranitidine HCl [Zantac] 150 mg PO DAILY 06/07/19 [Last Taken Unknown] Sennosides [Senna Lax] 17.2 mg PO HS PRN 06/07/19 [Last Taken Unknown] Sodium Chloride/Aloe Vera [Dyer Saline Nasal Gel] 14 gm TOPICAL PRN PRN 06/07/19 [Last Taken Unknown] Tamsulosin HCl 0.4 mg PO DAILY 06/07/19 [Last Taken 06/07/19 07:00] Exam - Exam Vital Signs: Vital Signs - Last Taken Temp 36.9 C 06/08/19 07:18 Pulse 58 L 06/08/19 07:18 Resp 16 06/08/19 07:18 BP 128/77 06/08/19 07:18 Pulse Ox 98 06/08/19 07:18 Constitutional: Present: Alert, Oriented x3, Cooperative ENT Exam: Present: hard of hearing Eye Exam: bilateral eye: normal inspection Respiratory: Present: lungs clear, normal breath sounds, no respiratory distress Cardiovascular/Chest: Present: regular rate, rhythm, no murmur Peripheral Pulses: radial (R): 2+, radial (L): 2+ Abdomen: Present: Normal bowel sounds, soft, nontender, nondistended, no rebound tenderness Skin Exam: Present: normal color, warm/dry, no cyanosis Lymphatic: Present: no adenopathy Diagnostic Studies: Abnormal Lab Results 06/07/19 06/07/19 Range/Units 17:30 17:30 Monocytes % 10.3 H (0.0-9) % BUN 24 H (6-23) mg/dL Est GFR (Non-Af Amer) 52 L (60-130) mL/min Random Glucose 122 H (70-110) mg/dL Calcium Adj for Albumin 8.3 L (8.4-10.2) mg/dL Laboratory Results WBC 8.6 K/mm3 (4.0-10.5) 06/07/19 17:30 RBC 4.88 M/mm3 (4.7-6.0) 06/07/19 17:30 Hgb 15.0 gm/dL (13.5-18.0) 06/07/19 17:30 Hct 46.2 % (42.0-52.0) 06/07/19 17:30 MCV 94.7 fl (78-100) 06/07/19 17:30 MCH 30.7 pg (27-31) 06/07/19 17:30 MCHC 32.5 g/dl (32-36) 06/07/19 17:30 RDW 13.7 % (11.5-14.0) 06/07/19 17:30 Plt Count 267 K/mm3 (150-450) 06/07/19 17:30 MPV 9.7 fl (8-11.3) 06/07/19 17:30 Immature Gran % (Auto) 0.20 % (0.001-0.429) 06/07/19 17:30 Immature Gran # (Auto) 0.02 K/mm3 (0.000-0.0310) 06/07/19 17:30 Neutrophils % 62.9 % (42-75.0) 06/07/19 17:30 Lymphocytes % 23.2 % (20-51) 06/07/19 17:30 Monocytes % 10.3 % (0.0-9) H 06/07/19 17:30 Eosinophils % 2.8 % (0.0-3.0) 06/07/19 17: Basophils % 0.6 % (0.0-1.0) 06/07/19 17: Nucleated RBC % 0.0 k/mm3 (0-1) 06/07/19 17: Neutrophils # 5.4 K/mm3 (1.3-6.0) 06/07/19 17:30 Lymphocytes # 1.99 k/mm3 (1.5-3.5) 06/07/19 17:30 Monocytes # 0.9 k/mm3 (0.0-1.0) 06/07/19 17: Eosinophils # 0.2 k/mm3 (0.0-0.7) 06/07/19 17:30 Absolute Basophils 0.1 k/mm3 (0.0-0.1) 06/07/19 17:30 PT 9.8 Seconds (9.1-10.7) 06/07/19 17:30 INR (Anticoag Therapy) 0.99 INR (0.92-1.08) 06/07/19 17:30 PTT (Eric) 30.1 Seconds (24-32) 06/07/19 17:30 Sodium 138 mmol/L (132-142) 06/07/19 17:30 Plasma Sodium 138 mmol/L (130-142) 06/07/19 17:30 Potassium 4.1 mmol/L (3.4-4.6) 06/07/19 17:30 Chloride 102 mmol/L (97-106) 06/07/19 17:30 Carbon Dioxide 28.8 mmol/L (24-32.6) 06/07/19 17:30 Anion Gap 11.3 mmol/L (6.8-13.8) 06/07/19 17:30 BUN 24 mg/dL (6-23) H 06/07/19 17:30 Creatinine 1.38 mg/dL (0.4-1.4) 06/07/19 17:30 Est GFR (Non-Af Amer) 52 mL/min (60-130) L 06/07/19 17:30 BUN/Creatinine Ratio 17.4 (9.0-21.6) 06/07/19 17:30 Random Glucose 122 mg/dL (70-110) H 06/07/19 17:30 Calcium 8.3 mg/dL (7.9-10.9) 06/07/19 17:30 Calcium Adj for Albumin 8.3 mg/dL (8.4-10.2) L 06/07/19 17:30 Total Bilirubin 0.4 mg/dL (0.0-1.1) 06/07/19 17:30 AST 19 U/L (0-48) 06/07/19 17:30 ALT 28 U/L (19-67) 06/07/19 17:30 Alkaline Phosphatase 107 U/L (50-170) 06/07/19 17:30 Troponin I 0.049 ng/mL (0.00-0.10) 06/08/19 03:20 Total Protein 7.2 gm/dL (6.2-8.2) 06/07/19 17:30 Albumin 3.6 gm/dl (3.4-5.0) 06/07/19 17:30 Assessment/Plan - Narrative Narrative: Moustapha is an 84 yo male that was brought to the ER for atrial fibrillation with RVR and chest pain. He received a dose of diltiazem prior to arrive in the ER per reports and by the time he arrived in the ER he was in normal sinus rhythm with normal rate and his chest pain had resolved. The ER requested admission for observation due to his recent conversion to normal sinus rhythm. He will be admitted to observation due to chest pain with atrial fibrillation with RVR. These have resolved but he will be monitored on telemetry to make sure he remains in sinus rhythm and to trend his troponins. - Assessment/Plan (1) Atrial fibrillation with rapid ventricular response Problem: Acute (2) Chest pain Problem: Acute Qualifiers: Chest pain type: unspecified Qualified Code(s): R07.9 - Chest pain, unspecified (3) Hearing loss Problem: Chronic Qualifiers: Hearing loss type: unspecified Laterality: bilateral Qualified Code(s): H91.93 - Unspecified hearing loss, bilateral (1) Atrial fibrillation with rapid ventricular response Problem: Resolved (2) Chest pain Problem: Resolved (3) Hearing loss Problem: Chronic Qualifiers: Date of Discharge:: 06/08/19 Description of Stay: Moustapha was admitted due to atrial fibrillation with RVR and chest pain, although this resolved prior to his arrival in the ER. He was admitted to [facility] to monitor on telemetry and to trend troponins. Troponins have been all normal, he remains in normal sinus rhythm, and his chest pain has not returned. Chest xray showed bilateral opacities. This is suspected to be atelectasis as he clinically does not have pneumonia. There has been no shortness of breath, fever, leukocytosis, and he is without significant cough. He will be discharged back to [facility] today and no changes in medication. Procedures Performed: none Results and Findings: Lab Pending Results 06/07/19 17:30: WBC 8.6, RBC 4.88, Hgb 15.0, Hct 46.2, MCV 94.7, MCH 30.7, MCHC 32.5, RDW 13.7, Plt Count 267, MPV 9.7, Immature Gran % (Auto) 0.20, Immature Gran # (Auto) 0.02, Neutrophils % 62.9, Lymphocytes % 23.2, Monocytes % 10.3 H, Eosinophils % 2.8, Basophils % 0.6, Nucleated RBC % 0.0, Neutrophils # 5.4, Lymphocytes # 1.99, Monocytes # 0.9, Eosinophils # 0.2, Absolute Basophils 0.1 06/07/19 17:30: PT 9.8, INR (Anticoag Therapy) 0.99, PTT (Wirt) 30.1 06/07/19 17:30: Sodium 138, Plasma Sodium 138, Potassium 4.1, Chloride 102, Carbon Dioxide 28.8, Anion Gap 11.3, BUN 24 H, Creatinine 1.38, Est GFR (Non-Af Amer) 52 L, BUN/Creatinine Ratio 17.4, Random Glucose 122 H, Calcium 8.3, Calcium Adj for Albumin 8.3 L, Total Bilirubin 0.4, AST 19, ALT 28, Alkaline Phosphatase 107, Troponin I 0.046, Total Protein 7.2, Albumin 3.6 06/07/19 20:30: Troponin I 0.062 06/08/19 03:20: Troponin I 0.049 Discharge Location: [facility] Disposition: Intermediate Care Facility ICF Condition: Good Level of Care: ICF Discharge Activity: Activity as tolerated Discharge Diet: Resume usual diet Referrals: Divya Streeter FNP [Primary Care Provider] - Problem Oriented Discharge Instructions to Patient/Family: Atrial Fibrillation, [id number] Complete Home Medications List: Complete Home Medication List: loratadine 10 mg tablet 10 mg PO DAILY 02/14/18 Diltiazem HCl [Cardizem] 30 mg PO BID #60 tab 05/03/19 Acetaminophen 650 mg PO Q4H PRN 06/07/19 Benzonatate 100 mg PO TID PRN 06/07/19 Bisacodyl 10 mg RC DAILY PRN 06/07/19 Docusate Sodium [Colace] 100 mg PO BID 06/07/19 Escitalopram Oxalate [Lexapro] 5 mg PO DAILY 06/07/19 Finasteride [Proscar] 5 mg PO DAILY 06/07/19 Fluticasone Propionate [Flonase] 2 spray NS DAILY 06/07/19 Gabapentin [Neurontin] 300 mg PO BID 06/07/19 Hydrochlorothiazide [Hydrodiuril] 25 mg PO DAILY 06/07/19 Polyethylene Glycol 3350 [Gavilax] 17 gm PO DAILY 06/07/19 Ranitidine HCl [Zantac] 150 mg PO DAILY 06/07/19 Sennosides [Senna Lax] 17.2 mg PO HS PRN 06/07/19 Sodium Chloride/Aloe Vera [Dyer Saline Nasal Gel] 14 gm TOPICAL PRN PRN 06/07/19 Tamsulosin HCl 0.4 mg PO DAILY 06/07/19
[2019-06-08 16:40] VITALS: BP 149/78
== END 2019-06-08 10:55 ==
LOC: MS 17:07 → ER 17:07 → MS 22:16
PROVIDERS: ADMIT Family Medicine; ATTEND Family Medicine
DX: R07.9 Chest pain, unspecified; H91.90 Unspecified hearing loss, unspecified ear; I48.91 Unspecified atrial fibrillation
CPT/HCPCS: 36415; 71010; 71045; 80053; 84484; 85025; 85610; 85730; 87081; 93005; 99285; G0378